=== PATIENT | female | born 1975 | race Hispanic/Latino ===

== ENCOUNTER 2016-07-11 08:10 | Outpatient (CLI) | payer OTHER ==
--- NOTE | 2016-07-11 09:24 | Ultrasound Report ---
Left mammogram and left breast ultrasound: Short-term followup compared to prior study in January 2016. There is a stable lobulated nodule identified posteriorly in the mid left breast. The margins are sharp. No calcifications noted. Left breast ultrasound again demonstrates 3 hypoechoic, elongated lesions with sharp margination in the 11:00, 2:00, and 3:30 positions. No significant changes compared to prior study. Impression: Stable probably benign left breast masses. Recommendation: Reevaluate six-month with annual screening mammogram to include left breast ultrasound. BI-RADS CATEGORY: 3 = Probably benign ACR BI-RADS MAMMOGRAPHIC CODES: 0 = Needs additional imaging evaluation; 1 = Negative; 2 = Benign; 3 = Probably benign; 4 = Suspicious; 5 = Malignant; 6 = Known biopsy-proven malignancy COMMENT: 1. Dense breast tissue, i.e., adenosis, fibrocystic changes, etc., may obscure an underlying neoplasm. 2. Approximately 10% of cancers are not detected with mammography. 3. A negative mammography report should not delay biopsy if a clinically suspicious mass is present.
== END 2016-07-11 08:11 | disposition home or self-care (01) ==
LOC: SPVWC 08:10
PROVIDERS: ATTEND Obstetrics & Gynecology
DX: N63 Unspecified lump in breast (principal)
CPT/HCPCS: 76642; G0206

== ENCOUNTER 2017-10-20 08:23 | Outpatient (CLI) | payer OTHER ==
--- NOTE | 2017-10-20 09:11 | Mammography Report ---
Left mammogram: Short-term followup. Imaging again demonstrates a circumscribed and elongated nodule in the posterior left breast. It has remained unchanged compared to prior exams dating back to January 2016. No new left breast findings. Impression: Stable left nodule. Recommendation: Resume annual bilateral mammogram screening. BI-RADS CATEGORY: 2 = Benign ACR BI-RADS MAMMOGRAPHIC CODES: 0 = Needs additional imaging evaluation; 1 = Negative; 2 = Benign; 3 = Probably benign; 4 = Suspicious; 5 = Malignant; 6 = Known biopsy-proven malignancy COMMENT: 1. Dense breast tissue, i.e., adenosis, fibrocystic changes, etc., may obscure an underlying neoplasm. 2. Approximately 10% of cancers are not detected with mammography. 3. A negative mammography report should not delay biopsy if a clinically suspicious mass is present.
== END 2017-10-20 08:24 | disposition home or self-care (01) ==
LOC: SPVWC 08:23
PROVIDERS: ATTEND Obstetrics & Gynecology
DX: R92.8 Other abnormal and inconclusive findings on diagnostic imaging of breast (principal)

== ENCOUNTER 2019-06-05 15:07 | Outpatient (CLI) | payer OTHER | END 2019-06-05 15:08 | disposition home or self-care (01) | LOC: SPVWC 15:07 | PROVIDERS: ATTEND Obstetrics & Gynecology | DX: Z12.31 Encounter for screening mammogram for malignant neoplasm of breast (principal) | CPT/HCPCS: 77067 ==